=== PATIENT | female | born 1990 | race Caucasian/White ===

== ENCOUNTER 2018-01-29 19:12 | Emergency (ER) | payer MEDICAID ==
[~2018-01-29] VITALS: Ht 162.6 cm; Wt 61.1 kg
[2018-01-29 19:14] VITALS: BP 136/74
[2018-01-29] MEDS ORDERED: DIPH,PERTUSS(ACELL),TET VAC/PF 0.5 ML IM-VACC ONE ×2 (19:30→20:00)
[2018-01-29] MEDS ORDERED: LIDOCAINE-MPF 1%, 5ML INFIL ONE (19:30)
[2018-01-29] MEDS ORDERED: LIDOCAINE-MPF 1%, 5ML ONE (19:42)
[2018-01-29] MEDS ORDERED: BACITRACIN ZINC OINT 500U/GM, 0.9 GM ONE (20:00)
== END 2018-01-29 20:19 | disposition home or self-care (01) ==
LOC: ED 20:01
DX: S61.211A Laceration without foreign body of left index finger without damage to nail, initial encounter (principal); W26.0XXA Contact with knife, initial encounter; Y93.89 Activity, other specified; Y99.8 Other external cause status; Y92.009 Unspecified place in unspecified non-institutional (private) residence as the place of occurrence of the external cause
CPT/HCPCS: 29130; 90471; 90715; 99283